=== PATIENT | female | born 1995 | race Two or more races ===

== ENCOUNTER 2020-05-08 08:23 | Outpatient (CLI) | payer OTHER | END 2020-05-08 08:27 | disposition home or self-care (01) | LOC: SONOGRAMA 08:23 | PROVIDERS: ATTEND Pathology Anatomic Pathology & Clinical Pathology | DX: E04.2 Nontoxic multinodular goiter (principal) ==

== ENCOUNTER 2022-06-14 10:10 | Outpatient (CLI) | payer OTHER | END 2022-06-14 10:13 | disposition home or self-care (01) | LOC: SONOGRAMA 10:10 | PROVIDERS: ATTEND Internal Medicine Endocrinology, Diabetes & Metabolism | DX: E04.2 Nontoxic multinodular goiter (principal) ==

== ENCOUNTER 2023-04-14 10:11 | Outpatient (CLI) | payer OTHER | END 2023-04-14 10:13 | disposition home or self-care (01) | LOC: SONOGRAMA 10:11 | PROVIDERS: ATTEND Pathology Anatomic Pathology & Clinical Pathology | DX: E04.2 Nontoxic multinodular goiter (principal); C73 Malignant neoplasm of thyroid gland ==

== ENCOUNTER 2025-01-25 13:11 | Outpatient (CLI) | payer OTHER | END 2025-01-25 13:25 | disposition home or self-care (01) | LOC: SONOGRAMA 13:11 | DX: C73 Malignant neoplasm of thyroid gland (principal) ==